=== PATIENT | male | born 1965 | race Two or more races ===

== ENCOUNTER 2020-10-18 19:32 | Inpatient (IN) | payer OTHER ==
[~2020-10-18] VITALS: Ht 182.9 cm; Wt 128.8 kg
[2020-10-18] MEDS ORDERED: TOPROL XL50 M1 (19:45)
[2020-10-18] MEDS ORDERED: MORGIDOX100 MG (19:45)
[2020-10-18] MEDS ORDERED: MUPIROCIN1 G1 (19:45)
[2020-10-18] MEDS ORDERED: CLONAZEPAM0.5 MG (19:46)
[2020-10-18] MEDS ORDERED: DIOVAN160 M1 (19:46)
[2020-10-22] MEDS ORDERED: VALSARTAN-HCTZ1 EAC1 (10:25)
[2020-10-24] MEDS ORDERED: INTESTINEX680 M1 PO (12:50)
[2020-10-24] MEDS ORDERED: DIOVAN160 M1 PO (12:56)
[2020-10-24] MEDS ORDERED: DIOVAN HCT 1601 EACH PO (12:56)
[2020-10-24] MEDS ORDERED: BACTRIM DS TAB1 EACH PO (13:05)
[2020-10-24] MEDS ORDERED: TOPROL XL50 M1 PO (13:07)
== END 2020-10-24 14:42 | disposition home or self-care (01) | DRG 581 ==
LOC: ER 19:32 → EDBD 19:58 → ER 19:58 → MEDJ 10-19 09:52 → SURH 10-19 09:52
PROVIDERS: ADMIT Internal Medicine; ATTEND Internal Medicine
PROC: 8E0ZXY6 Isolation (ICD-10-PCS; 2020-10-19)
PROC: 0W9F0ZZ Drainage of Abdominal Wall, Open Approach (ICD-10-PCS; principal; 2020-10-20)
DX: L03.311 Cellulitis of abdominal wall (principal); L02.211 Cutaneous abscess of abdominal wall; B95.62 Methicillin resistant Staphylococcus aureus infection as the cause of diseases classified elsewhere; I10 Essential (primary) hypertension; E66.9 Obesity, unspecified; Z20.822 Contact with and (suspected) exposure to COVID-19